=== PATIENT | male | born 1955 | race Caucasian/White ===

== ENCOUNTER 2024-03-20 07:45 | Outpatient (CLI) | payer MEDICARE, BC | END 2024-03-20 23:59 | disposition home or self-care (01) | LOC: RAD 07:45 | PROVIDERS: ATTEND Urology | DX: N20.0 Calculus of kidney (principal); N21.0 Calculus in bladder; K76.0 Fatty (change of) liver, not elsewhere classified; R16.1 Splenomegaly, not elsewhere classified; K57.90 Diverticulosis of intestine, part unspecified, without perforation or abscess without bleeding; M47.9 Spondylosis, unspecified | CPT/HCPCS: 74018; 74176 ==